=== PATIENT | female | born 2000 | race Caucasian/White ===

== ENCOUNTER 2023-10-03 03:09 | Day surgery (SDC) | payer SELFPAY ==
[2023-10-03] MEDS ORDERED: Sodium Chloride 0.9% 100 ML ONE (05:04)
[2023-10-03] MEDS ORDERED: Piperacillin/Tazobactam 3.375 GM VIAL ONE (05:04)
[2023-10-03] MEDS ORDERED: Sodium Chloride 0.9% 1,000 ML IV SCH (05:30)
[2023-10-03] MEDS ORDERED: Ondansetron ODT 4 MG TAB SL PRN (05:30)
[2023-10-03] MEDS ORDERED: Ondansetron PF 4 MG/2 ML Vial IVP PRN (05:30)
[2023-10-03] MEDS ORDERED: Scopolamine 1 mg/72 hour Patch ONE (08:23)
[2023-10-03] MEDS ORDERED: Ketorolac Tromethamine 30 MG/ML VIAL ONE (08:23)
[2023-10-03] MEDS ORDERED: Bupivacaine PF 0.5% 30 ML VIAL ONE (09:42)
[2023-10-03] MEDS ORDERED: EPINEPHrine 1 MG/ML VIAL ONE (09:42)
[2023-10-03] MEDS ORDERED: PROPOFOL 20 ML ONE (09:44)
[2023-10-03] MEDS ORDERED: fentaNYL PF 100 MCG/2 ML SYRINGE ONE (09:44)
[2023-10-03] MEDS ORDERED: Lidocaine 1% PF 5 ML VIAL ONE ×2 (09:45→09:59)
[2023-10-03] MEDS ORDERED: Rocuronium Bromide 10 MG/ML (10ML VIAL) ONE ×2 (09:45→09:59)
[2023-10-03] MEDS ORDERED: Succinylcholine 200 MG/10 ml SYRINGE FS ONE (09:48)
[2023-10-03] MEDS ORDERED: Dexamethasone 20 MG/5 ML VIAL ONE (09:59)
[2023-10-03] MEDS ORDERED: PROPOFOL 200 MG/20 ML VIAL ONE (09:59)
[2023-10-03] MEDS ORDERED: Ondansetron PF 4 MG/2 ML Vial ONE ×2 (09:59→10:36)
[2023-10-03] MEDS ORDERED: Succinylcholine Chloride 100 MG/5 ML SYRINGE FS ONE (09:59)
[2023-10-03] MEDS ORDERED: SUGAMMADEX SODIUM 200 MG/2 ML VIAL ONE ×2 (10:35→10:46)
[2023-10-03] MEDS ORDERED: Dexamethasone 4 mg/ml Vial ONE (10:36)
[2023-10-03] MEDS ORDERED: fentaNYL 50 mcg/mL 1 mL Vial ONE (11:08)
[2023-10-03] MEDS ORDERED: HYDROcodone/Acetaminophen 5/325 mg Tablet ONE (12:49)
== END 2023-10-03 13:45 | disposition home or self-care (01) ==
LOC: ERS 03:09 → SDC 08:03
PROVIDERS: ATTEND Specialist
PROC: 0FT44ZZ Resection of Gallbladder, Percutaneous Endoscopic Approach (ICD-10-PCS; principal; 2023-10-03)
DX: O99.63 Diseases of the digestive system complicating the puerperium (principal); K80.12 Calculus of gallbladder with acute and chronic cholecystitis without obstruction
CPT/HCPCS: 76705; 88304; 96365; C1889; J0171; J1100; J1885; J2405; J2543; J2704; J3010; J3490; S0020